=== PATIENT | female | born 1950 | race Caucasian/White ===

== ENCOUNTER 2021-08-16 08:39 | Outpatient (CLI) | payer MEDICARE, SELFPAY ==
--- NOTE | 2021-08-16 08:30 | RT.EKG_ITS ---
APPROVED REPORT Exam: Resting ECG Reason for Exam: CAD Patient Location: O HR:75 bpm ECG Measurements Heart Rate 75 AXIS PA 193 P 42 QRSd 82 QRS 18 QT 338 T 46 QTc 378 Conclusion Sinus rhythm...normal P axis, V-rate 50- 99 Normal Electrocardiogram
== END 2021-08-16 08:40 | disposition home or self-care (01) ==
LOC: DI.CARD 08:40
PROVIDERS: PCP Student in an Organized Health Care Education/Training Program; Visit Provider Internal Medicine Cardiovascular Disease
DX: I25.10 Atherosclerotic heart disease of native coronary artery without angina pectoris (principal)
CPT/HCPCS: 93010

== ENCOUNTER → 2021-08-16 12:21 | Outpatient (BNVA) | payer MEDICARE, SELFPAY | PROVIDERS: PCP Student in an Organized Health Care Education/Training Program; Referring Provider Student in an Organized Health Care Education/Training Program; Visit Provider Internal Medicine Cardiovascular Disease | DX: E11.9 Type 2 diabetes mellitus without complications (principal); E66.01 Morbid (severe) obesity due to excess calories; Z68.41 Body mass index [BMI] 40.0-44.9, adult; J45.909 Unspecified asthma, uncomplicated; I51.9 Heart disease, unspecified | CPT/HCPCS: 93005; 99202; 99203; 99213 ==

== ENCOUNTER 2021-11-26 21:07 | Outpatient (REF) | payer MEDICARE, SELFPAY ==
[2021-11-26 16:15] LABS: Abs Immature Grans 0.02 10^3/uL (0.0-0.06); Absolute Basophil Count 0.04 10^3/uL (0.0-0.2); Absolute Eosinophil Count 0.13 10^3/uL (0.0-0.7); Absolute Lymphocyte Count 1.13 10^3/uL (1.2-3.4); Absolute Monocyte Count 0.54 10^3/uL (0.1-0.8); Absolute Neutrophil Count 5.48 10^3/uL (1.2-6.7); Basophils % 0.5; Eosinophils % 1.8; HCT 41.4 % (36.0-46.0); HGB 13.4 g/dL (11.2-15.7); Immature Grans % 0.3; Lymphocytes % 15.4; MCHC 32.4 % (32.0-36.0); MCV 93 fL (80-95); MPV 9.9 fL (8.0-11.0); Monocytes % 7.4; Neutrophils % 74.6; Platelet Count 248 10^3/uL (130-400); RBC 4.47 10^6/uL (3.93-5.22); RDW 13.1 % (11.7-14.6); RDW-SD 44.6 fL; WBC 7.34 10^3/uL (4.4-10.8)
[2021-11-29 09:46] LABS: IgE 22 IU/mL (<158)
== END 2021-11-26 21:08 | disposition home or self-care (01) ==
LOC: LBN 21:07
PROVIDERS: PCP Student in an Organized Health Care Education/Training Program; Visit Provider Student in an Organized Health Care Education/Training Program
DX: J45.909 Unspecified asthma, uncomplicated (principal)
CPT/HCPCS: 82785; 85025

== ENCOUNTER 2022-02-18 02:16 | Outpatient (CLI) | payer MEDICARE, SELFPAY ==
--- OUTSIDE RECORDS SUMMARY | 2022-02-18 02:32 | XMS_ITS | Encounter Summary ---
:1950 Demographics Home Phone Preferred Language Unknown Marital Status Unknown Amish Affiliation Unknown Race Unknown Ethnic Group Unknown Author Organization [facility] Address [address] [place] [address] Care Team Providers Name Role Phone Unavailable Primary Care Provider Unavailable Encounter Details Date Type Department Care Team Description 11/27/2021 Lab Requisition [facility] Outr Resulting Lab, Pathology & Laboratory Provider [facility] [address] [place] [address] Social History Tobacco Use Types Packs/Day Years Used Date Never Assessed Sex Assigned at Date Recorded Not on file documented as of this encounter Plan of Treatment Not on filedocumented as of this encounter Procedures Procedure Name Priority Date/Time Associated Diagnosis Comme nts IGE Routine 11/26/2021 14:10 EDT Results for this procedure are i n the results section . documented in this encounter Results IGE (11/26/2021 14:10 EDT) Pathologist Sig nature IgE 22 <158 IU/mL [facility] Specimen Blood - Venous blood (substance) Performing Organization Address City/State/ZIP Code Phon e Number [facility] [address] [place] [address] SERVICES documented in this encounter Visit Diagnoses Not on filedocumented in this encounter
[2022-02-18] MEDS: Albuterol HFA 18 GM 200 PUFF INH IH (15:40)
[2022-02-18] MEDS: Inhaler, Assist Device 1 EACH MC (15:40)
--- NOTE | 2022-02-25 09:49 | W.PFT ---
Date of service: 02/18/22 Time of Service: 13:08 Pulmonary Function Test Result Requesting Provider Yossi Indications: Asthma Interpretation Spirometry: There is no airflow limitation. There is no significant bronchodilator response. Lung Volumes: Normal lung volumes Diffusion Capacity: Diffusion is normal Airway Pressure: Airways resistance is normal. Impression Normal pulmonary function test. Clinical Correlation therefore is recommended.
== END 2022-02-18 02:17 | disposition home or self-care (01) ==
LOC: RT 02:16
PROVIDERS: PCP Student in an Organized Health Care Education/Training Program; Visit Provider Student in an Organized Health Care Education/Training Program
DX: J45.909 Unspecified asthma, uncomplicated (principal)
CPT/HCPCS: 94060; 94726; 94729

== ENCOUNTER 2022-09-13 02:58 | Outpatient (CLI) | payer MEDICARE, SELFPAY ==
--- NOTE | 2022-09-13 13:00 | NS.NUTBLAN_ITS ---
Pippa was referred for diabetes self management and weight loss education. 5'4 209 lbs BMI: 36. Has lost over 60 lbs in last year. Dx with Dm in 2020 with an A1C of 14.1%. A1C this year (07/08/22): 5.9% Has stopped all DM meds. Diet Recall: B: 1 slice bread with PB. 10 am protein shake Lunch: Senior Meal, 3 pm: yogurt with berries, Dinner: salad with protein and dressing Pippa has made a tremendous amount of positive life style changes that resulted in a 60 lbs weight loss and ability to put her Dm2 in remission. Current A1C fantastic. Session today focused on ways to increase variety and helped her trouble shoot eating out. Encouraged Pippa to track her macronutrients at least once weekly. Goal is for her to weigh < 200 lbs and to maintain an A1C of <6.5%. No follow up planned.
== END 2022-09-13 02:59 | disposition home or self-care (01) ==
LOC: DS 02:58
PROVIDERS: PCP Student in an Organized Health Care Education/Training Program; Visit Provider Dietitian, Registered
DX: E11.9 Type 2 diabetes mellitus without complications (principal); E66.8 Other obesity; Z71.3 Dietary counseling and surveillance; Z68.36 Body mass index [BMI] 36.0-36.9, adult
CPT/HCPCS: 97802

== ENCOUNTER 2022-10-07 00:37 | Outpatient (CLI) | payer MEDICARE, SELFPAY ==
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
== END 2022-10-07 00:57 ==
LOC: DI 00:38
PROVIDERS: PCP Student in an Organized Health Care Education/Training Program; Visit Provider Student in an Organized Health Care Education/Training Program
DX: R60.0 Localized edema; Z87.828 Personal history of other (healed) physical injury and trauma; Z91.81 History of falling; M17.0 Bilateral primary osteoarthritis of knee
CPT/HCPCS: 73564

== ENCOUNTER → 2023-04-11 14:17 | Outpatient (BNVA) | payer MEDICARE, SELFPAY | PROVIDERS: PCP Student in an Organized Health Care Education/Training Program; Referring Provider Student in an Organized Health Care Education/Training Program; Visit Provider Student in an Organized Health Care Education/Training Program | DX: J45.909 Unspecified asthma, uncomplicated (principal); Z79.51 Long term (current) use of inhaled steroids; E11.9 Type 2 diabetes mellitus without complications | CPT/HCPCS: 99214 ==

== ENCOUNTER 2023-09-19 05:13 | Outpatient (CLI) | payer MEDICARE, SELFPAY ==
[2023-09-19 09:42] LABS: Anion Gap 7.5 mmol/L (3-11); BUN 24 mg/dL (7-18); CO2 31.5 mmol/L (21.0-32.0); CREATININE 0.9 mg/dL (0.55-1.02); Calcium 9.8 mg/dL (8.5-10.1); Chloride 105 mmol/L (98-107); Glucose 153 mg/dL (74-106); Potassium 3.7 mmol/L (3.5-5.1); Sodium 144 mmol/L (136-145)
[2023-09-19 10:56] LABS: Vitamin D 25 Total 23.3 ng/mL (30-100)
== END 2023-09-19 05:14 | disposition home or self-care (01) ==
LOC: LBO 05:13
PROVIDERS: Absent Provider Student in an Organized Health Care Education/Training Program; PCP Student in an Organized Health Care Education/Training Program; Referring Provider Student in an Organized Health Care Education/Training Program; Visit Provider Student in an Organized Health Care Education/Training Program
DX: Z91.89 Other specified personal risk factors, not elsewhere classified (principal); M85.80 Other specified disorders of bone density and structure, unspecified site; M89.8X9 Other specified disorders of bone, unspecified site; M79.606 Pain in leg, unspecified
CPT/HCPCS: 36415; 80048; 82306

== ENCOUNTER 2023-12-08 13:52 | Outpatient (CLI) | payer MEDICARE, SELFPAY ==
[2023-12-08 12:34] LABS: Abs Immature Grans 0.03 10^3/uL (0.0-0.06); Absolute Basophil Count 0.04 10^3/uL (0.0-0.2); Absolute Eosinophil Count 0.14 10^3/uL (0.0-0.7); Absolute Lymphocyte Count 0.92 10^3/uL (1.2-3.4); Absolute Monocyte Count 0.35 10^3/uL (0.1-0.8); Absolute Neutrophil Count 5.43 10^3/uL (1.2-6.7); Basophils % 0.6 %; HCT 38.6 % (36.0-46.0); HGB 12.5 g/dL (11.2-15.7); Immature Grans % 0.4 %; Lymphocytes % 13.3 %; MCH 29.9 pg (27.0-33.0); MCHC 32.4 % (32.0-36.0); MCV 92 fL (80-95); MPV 10.3 fL (8.0-11.0); Monocytes % 5.1 %; Neutrophils % 78.6 %; Platelet Count 182 10^3/uL (130-400); RBC 4.18 10^6/uL (3.93-5.22); RDW 13.2 % (11.7-14.6); RDW-SD 44.6 fL; WBC 6.91 10^3/uL (4.4-10.8)
[2023-12-08 12:47] LABS: Hemoglobin A1C 6.6 % (<5.7)
[2023-12-08 13:24] LABS: ALT 26 U/L (14-59); AST 15 U/L (15-37); Albumin 3.5 g/dL (3.4-5.0); Alkaline Phosphatase 80 U/L (46-116); Anion Gap 5.6 mmol/L (3-11); BUN 13 mg/dL (7-18); Bilirubin, Total 0.36 mg/dL (0.2-1.0); CO2 28.4 mmol/L (21.0-32.0); CREATININE 0.8 mg/dL (0.55-1.02); Calcium 9.7 mg/dL (8.5-10.1); Chloride 108 mmol/L (98-107); Estimated GFR 77.75 (mL/min/1.73m2); Glucose 262 mg/dL (74-106); Potassium 3.7 mmol/L (3.5-5.1); Sodium 142 mmol/L (136-145); Total Protein 6.9 g/dL (6.4-8.2); Vitamin D 25 Total 20.1 ng/mL (30-100)
== END 2023-12-08 13:53 | disposition home or self-care (01) ==
LOC: LBO 13:54
PROVIDERS: PCP Student in an Organized Health Care Education/Training Program; Visit Provider Student in an Organized Health Care Education/Training Program
DX: Z91.89 Other specified personal risk factors, not elsewhere classified (principal); R19.7 Diarrhea, unspecified; Z59.9 Problem related to housing and economic circumstances, unspecified; R73.09 Other abnormal glucose; K90.9 Intestinal malabsorption, unspecified
CPT/HCPCS: 36415; 80053; 82306; 83036; 85025

== ENCOUNTER 2023-12-12 20:07 | Outpatient (REF) | payer MEDICARE, SELFPAY ==
[2023-12-12 16:36] LABS: C Diff PCR Negative (Negative)
[2023-12-13 11:49] LABS: Campylobacter PCR Negative (Negative); Salmonella PCR Negative (Negative); Shiga Toxin PCR Negative (Negative); Shigella/Enteroinvasive Ecoli Negative (Negative)
== END 2023-12-12 20:08 | disposition home or self-care (01) ==
LOC: LBN 20:07
PROVIDERS: PCP Student in an Organized Health Care Education/Training Program; Visit Provider Student in an Organized Health Care Education/Training Program
DX: R19.7 Diarrhea, unspecified (principal); Z91.89 Other specified personal risk factors, not elsewhere classified; Z59.9 Problem related to housing and economic circumstances, unspecified
CPT/HCPCS: 87046; 87329; 87493; 87505

== ENCOUNTER 2024-01-09 14:06 | Outpatient (CLI) | payer MEDICARE, SELFPAY ==
--- NOTE | 2024-01-09 13:54 | DI.CT_ITS ---
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 TECHNIQUE: Imaging Protocol: Axial computed tomography images with coronal and sagittal reformatted images were created and reviewed. Field of view of this study is from top of the frontal sinuses down to the inferior aspect of the max illary sinuses. No IV contrast: Patient apparently refused IV contrast. COMPARISON: No exams were available for comparison FINDINGS: MAXILLOFACIAL CT SCAN: There is no evidence of orbital nor other facial fractures and there is no fluid the paranasal sinus es. No focal abnormality is seen in the sphenoid sinus (as per request). There is no evidence of dysconjugate gaze. Orbital globes appear unremarkable as do the retro conal compartments and optic nerves. Lacrimal glands in the superolateral quadrant of the orbits appear un remarkable/symmetrical. Extraocular muscles appear unremarkable and symmetrical. In the medial aspect of the right orbital region there is an asymmetric density which measures approx imately 11 mm wide by 11 mm AP by 9 mm craniocaudal. Cannot determine if this exhibits peripheral or internal enhancement as patient apparently refused IV contrast. IMPRESSION: There is an 11 x 11 x 9 mm extraconal soft tissue lesion in the superior medial aspect of the orbit Differential includes mucocele lacrimal sac, dermoid cyst. Always also the possibility of metastatic lesions to this region. Recommend follow-up MRI for added specificity RADIATION DOSE DELIVERED: 137.01mGy.cm Total DLP DATA REPOSITORY: All CT scans at this facility are submitted to the National Radiology Data Registry (NRDR) Dose Index Registry (DIR) with the [employer] ([employer]). RADIATION OPTIMIZATION: All CT scans at this facility use at least one of these dose optimization te chniques: automated exposure control; mA and/or kV adjustment per patient size (includes targeted exa ms where dose is matched to clinical indication); or iterative reconstruction.
== END 2024-01-09 14:26 ==
LOC: DI 14:07
PROVIDERS: PCP Student in an Organized Health Care Education/Training Program; Visit Provider Student in an Organized Health Care Education/Training Program
DX: J34.1 Cyst and mucocele of nose and nasal sinus (principal); H04 Disorders of lacrimal system
CPT/HCPCS: 70480

== ENCOUNTER 2024-01-12 18:03 | Outpatient (REF) | payer MEDICARE, SELFPAY | END 2024-01-12 18:04 | disposition home or self-care (01) | LOC: LBN 18:03 | PROVIDERS: PCP Student in an Organized Health Care Education/Training Program; Visit Provider Student in an Organized Health Care Education/Training Program | DX: R19.7 Diarrhea, unspecified (principal) | CPT/HCPCS: 87177 ==

== ENCOUNTER → 2024-02-06 13:19 | Outpatient (BNVA) | payer MEDICARE, SELFPAY | PROVIDERS: PCP Student in an Organized Health Care Education/Training Program; Referring Provider Student in an Organized Health Care Education/Training Program; Visit Provider Physician Assistant Surgical | DX: J45.909 Unspecified asthma, uncomplicated (principal) | CPT/HCPCS: 99214 ==

== ENCOUNTER 2024-11-25 01:52 | Outpatient (CLI) | payer MEDICARE, SELFPAY ==
[2024-11-25 12:40] LABS: ALT 41 U/L (14-59); AST 22 U/L (15-37); Albumin 3.8 g/dL (3.4-5.0); Alkaline Phosphatase 112 U/L (46-116); Anion Gap 5.8 mmol/L (3-11); BUN 19 mg/dL (7-18); Bilirubin, Total 0.5 mg/dL (0.2-1.0); CO2 31.2 mmol/L (21.0-32.0); Calcium 9.2 mg/dL (8.5-10.1); Calculated LDL 39 mg/dL (<100); Chloride 105 mmol/L (98-107); Cholesterol 125 mg/dL (<200); Estimated GFR 98.36 (mL/min/1.73m2); Glucose 91 mg/dL (74-106); HDL Cholesterol 79 mg/dL (>or=50); Potassium 3.4 mmol/L (3.5-5.1); Sodium 142 mmol/L (136-145); Total Protein 7.4 g/dL (6.4-8.2); Triglyceride 38 mg/dL (<150)
[2024-11-25 14:35] LABS: Hemoglobin A1C 5.8 % (<5.7)
== END 2024-11-25 01:53 | disposition home or self-care (01) ==
LOC: LOS 01:52
PROVIDERS: PCP Family Medicine; Visit Provider Family Medicine
DX: E11.9 Type 2 diabetes mellitus without complications (principal)
CPT/HCPCS: 36415; 80053; 80061; 82043; 82570; 83036

== ENCOUNTER 2024-12-13 12:52 | Outpatient (REF) | payer MEDICARE, SELFPAY ==
[2024-12-13 13:34] LABS: COMMENT (LAB VIEW ONLY) 170.40 mg/dL; Microalb ug/mg Crea 36.8 ug/mg Cr
== END 2024-12-13 12:53 | disposition home or self-care (01) ==
LOC: LBN 12:52
PROVIDERS: PCP Family Medicine; Visit Provider Family Medicine
DX: E11.9 Type 2 diabetes mellitus without complications (principal)
CPT/HCPCS: 82043; 82570

== ENCOUNTER → 2024-12-17 12:38 | Outpatient (BNVA) | payer MEDICARE, SELFPAY | PROVIDERS: PCP Family Medicine; Referring Provider Family Medicine; Visit Provider Physician Assistant Surgical | DX: J45.909 Unspecified asthma, uncomplicated (principal) | CPT/HCPCS: 99214 ==